=== PATIENT | female | born 1955 ===

== ENCOUNTER → 2017-07-07 | Outpatient (CLI) | payer MEDICARE, BC | LOC: OLS 08:29 | DX: E11.9 Type 2 diabetes mellitus without complications (principal) | CPT/HCPCS: 36415; 83036 ==

== ENCOUNTER → 2019-12-04 | Outpatient (CLI) | payer MEDICARE, BC | END | disposition home or self-care (01) | LOC: LAB SHORT 12:45 → LAB EV 12:45 | DX: M79.645 Pain in left finger(s) (principal) | CPT/HCPCS: 84550 ==

== ENCOUNTER → 2019-12-19 | Outpatient (CLI) | payer MEDICARE, BC ==
[2019-12-20 15:09] LABS: HPV 16 Negative (Negative); HPV 18 Negative (Negative); HPV OTHER HR TYPES Negative (Negative)
== END | disposition home or self-care (01) ==
PROVIDERS: Advanced Practice Midwife
DX: Z01.419 Encounter for gynecological examination (general) (routine) without abnormal findings (principal)

== ENCOUNTER → 2021-06-06 | Outpatient (CLI) | payer MEDICARE, BC ==
[2021-06-09 13:08] LABS: HPV 16 Negative (Negative); HPV 18 Negative (Negative); HPV OTHER HR TYPES Negative (Negative)
== END | disposition home or self-care (01) ==
LOC: LAB SHORT 10:21 → LAB 10:21
PROVIDERS: Advanced Practice Midwife
DX: Z01.419 Encounter for gynecological examination (general) (routine) without abnormal findings (principal)
CPT/HCPCS: 87624; G0123

== ENCOUNTER → 2023-03-14 | Outpatient (CLI) | payer MEDICARE, BC ==
[2023-03-15 12:59] LABS: Stool Occult Bld Immuno 1 Positive (NEGATIVE)
== END | disposition home or self-care (01) ==
LOC: LAB SHORT 22:20 → LAB 22:20
PROVIDERS: Family Medicine
DX: Z12.11 Encounter for screening for malignant neoplasm of colon (principal)
CPT/HCPCS: 82274

== ENCOUNTER 2023-09-12 19:03 | Inpatient (IN) | payer MEDICARE, BC ==
[~2023-09-12] VITALS: Ht 162.6 cm; Wt 88.4 kg
[2023-09-12 20:00] LABS: BASOPHILS ABSOLUTE AUTO 0.03 K/mm3 (0.00-0.23); BASOPHILS PERCENT AUTO 0 % (0-2); EOSINOPHILS ABSOLUTE AUTO 0.04 K/mm3 (0.00-0.68); EOSINOPHILS PERCENT AUTO 1 % (0-6); Hematocrit 35.7 % (33.0-51.0); Hemoglobin 11.9 g/dL (11.5-16.0); IMMATURE GRAN ABSOLUTE AUTO 0.03 K/mm3 (0.00-0.10); IMMATURE GRAN PERCENT AUTO 0 % (0-1); LYMPHOCYTES ABSOLUTE AUTO 1.77 K/mm3 (0.84-5.20); LYMPHOCYTES PERCENT AUTO 22 % (21-46); MONOCYTES ABSOLUTE AUTO 0.71 K/mm3 (0.16-1.47); MONOCYTES PERCENT AUTO 9 % (4-13); Mean Corpuscular HGB 27.4 pg (26.0-34.0); Mean Corpuscular HGB Conc 33.3 g/dL (31.5-36.5); Mean Corpuscular Volume 82 fL (80-100); Mean Platelet Volume 10.5 fL (9.1-12.4); NEUTROPHILS ABSOLUTE AUTO 5.66 K/mm3 (1.96-9.15); NEUTROPHILS PERCENT AUTO 69 % (41-73); Platelet Count 240 K/mm3 (150-400); RDW Coefficient Variation 17.8 % (11.7-14.2); RDW Standard Deviation 52.1 fL (35.1-46.3); Red Blood Cell Count 4.34 M/mm3 (3.80-5.20); White Blood Cell Count 8.24 K/mm3 (4.00-11.30)
[2023-09-12 20:16] LABS: International Normalized Ratio 0.94; Prothrombin Time Results 9.9 Sec (9.7-11.5)
[2023-09-12 20:21] LABS: Albumin, Blood 4.1 g/dL (3.4-5.0); Albumin/Globulin Ratio 1.2 (0.8-1.8); Bilirubin, Total 0.3 mg/dL (0.1-1.0); Bun/Creatinine Ratio 13.6 (12.0-20.0); Calcium, Blood 9.7 mg/dL (8.5-10.1); Creatinine, Blood 0.81 mg/dL (0.40-1.00); Globulin, Blood 3.5 g/dL (2.2-4.0); Potassium, Blood 3.8 mmol/L (3.5-5.5); Total Protein, Blood 7.6 g/dL (6.4-8.2)
[2023-09-12] MEDS ORDERED: NS 1,000 ML IV SCH (21:50)
[2023-09-12 22:00] LABS: Source, Urine Clean Catch
[2023-09-12 22:07] LABS: Appearance, Urine Clear (Clear); Bilirubin, Urine Neg (Neg); Blood, Urine 3+ (Neg); Color, Urine Yellow (P-Yellow); Glucose Qualitative, Urine Neg (Neg); Ketones, Urine Neg (Neg); Leukocyte Esterase, Urine Neg (Neg); Nitrite, Urine Neg (Neg); Protein, Urine 1+ (Neg); Specific Gravity, Urine 1.005 (1.003-1.022); Urobilinogen, Urine NORM (Normal)
[2023-09-12] MEDS ORDERED: Ondansetron HCl 2 MG / ML 2ML Vial IV PRN (22:10)
[2023-09-12] MEDS ORDERED: Acetaminophen 325 MG TABLET PO PRN (22:10)
[2023-09-12] MEDS ORDERED: FLU VACC QS2023-24(6MOS UP)/PF 60 MCG/0.5 ML SYRINGE IM ONE (22:10)
[2023-09-12 22:31] LABS: Bacteria Rare /hpf; Red Blood Cells, Urine 0-2 /hpf (0-2); Squamous Epithelial Cells Few /hpf (Few); White Blood Cells, Urine 0-2 /hpf (0-5)
[2023-09-12] MEDS ORDERED: Lactated Ringer's 1,000 ML IV SCH (23:00)
[2023-09-12 23:41] VITALS: BP 133/74
--- NOTE | 2023-09-13 00:21 | NUR ---
ADMIT NOTE 67 YR OLD FEMALE ADMITTED TO FLOOR FROM THE ED WITH DX OF LOWER GI BLEED. ED RN REPORTED PT HAD LOWER ABD PAIN AND HAD BM - NOTED APPARENT BLOOD CLOTS IN FECES AND CAME TO ED. A/O X 4. NOTE SLOW MOVEMENT FROM THE GURNEY TO GET INTO BED, VOICED HX GEORGE PLACEMENTS OF MOST OF BACK. PT ON CL LIQ (NO RED FLUIDS). ORIENTED TO USE OF CALL LIGHT. RAILS UP X 2 FOR SAFETY. SCD'S IN USE. WT 88.4 KG. WILL CONT TO MONITOR
[2023-09-13 00:33] LABS: Hematocrit 34.8 % (33.0-51.0); Hemoglobin 11.4 g/dL (11.5-16.0); Mean Corpuscular HGB 27.3 pg (26.0-34.0); Mean Corpuscular HGB Conc 32.8 g/dL (31.5-36.5); Mean Corpuscular Volume 83 fL (80-100); Mean Platelet Volume 10.4 fL (9.1-12.4); Platelet Count 212 K/mm3 (150-400); RDW Coefficient Variation 17.8 % (11.7-14.2); Red Blood Cell Count 4.18 M/mm3 (3.80-5.20); White Blood Cell Count 9.12 K/mm3 (4.00-11.30)
[2023-09-13] MEDS ORDERED: LOSA25 PO (00:43)
[2023-09-13 00:49] LABS: Bun/Creatinine Ratio 13.7 (12.0-20.0); Creatinine, Blood 0.8 mg/dL (0.40-1.00); Potassium, Blood 3.8 mmol/L (3.5-5.5)
[2023-09-13] MEDS ORDERED: FentaNYL Citrate 50 MCG/ML 2 ML Injection IV ONE (03:00)
[2023-09-13] MEDS ORDERED: FentaNYL Citrate 50 MCG/ML 2 ML Injection IV PRN (03:00)
[2023-09-13] MEDS ORDERED: Pantoprazole Sodium 40 MG Injection IV SCH (06:00)
--- NOTE | 2023-09-13 06:04 | NUR ---
USER SUPPORT SPECIALIST SUMMARY ADMITTED EARLIER IN THE SHIFT WITH DX OF LOWER GI BLEED. ALERT AND ORIENTED. VSS. NOTED SOME APPARENT S/S BLOOD IN FIRST STOOL, BUT NO NOTED S/S BLOOD IN SECOND STOOL. IVF OF LR INFUSING. HAS BEEN RESTING QUIETLY WITH OCCASIONAL AWAKENINGS - USUALLY TO GO TO BATHROOM. CALL LIGHT IN REACH. CL LIQ DIET. POSSIBLE COLONOSCOPY LATER TODAY.
[2023-09-13 07:38] VITALS: BP 125/63
[2023-09-13] MEDS ORDERED: Peg/Electrolytes 4,000 ML BTL PO ONE (08:55)
[2023-09-13] MEDS ORDERED: Losartan Potassium 25 MG Tab PO SCH (09:00)
[2023-09-13] MEDS ORDERED: AMLO10 PO (13:12)
[2023-09-13] MEDS ORDERED: ATOR20 PO (13:13)
[2023-09-13] MEDS ORDERED: CYCL10 PO (13:14)
[2023-09-13] MEDS ORDERED: OxyCODONE HCL 5 MG TAB PO PRN (13:15)
[2023-09-13] MEDS ORDERED: CYMBALTA60 M1 PO (13:15)
[2023-09-13] MEDS ORDERED: Cyclobenzaprine HCl 10 MG Tab PO PRN (13:15)
[2023-09-13] MEDS ORDERED: FURO20 PO (13:16)
[2023-09-13] MEDS ORDERED: LIDO700A20 TOP (13:17)
[2023-09-13] MEDS ORDERED: LOSARTAN POTAS100 M1 PO (13:18)
[2023-09-13] MEDS ORDERED: METO50ER PO (13:19)
[2023-09-13] MEDS ORDERED: Lidocaine 4% 1 Patch TOP PRN (13:20)
[2023-09-13] MEDS ORDERED: OXYMORPHONE HC7.5 MG PO (13:20)
[2023-09-13] MEDS ORDERED: PANT40 PO (13:21)
[2023-09-13] MEDS ORDERED: ALDACTONE25 MG PO (13:22)
[2023-09-13 14:31] LABS: BASOPHILS ABSOLUTE AUTO 0.02 K/mm3 (0.00-0.23); BASOPHILS PERCENT AUTO 0 % (0-2); EOSINOPHILS PERCENT AUTO 0 % (0-6); Hematocrit 34.1 % (33.0-51.0); Hemoglobin 11.3 g/dL (11.5-16.0); IMMATURE GRAN ABSOLUTE AUTO 0.02 K/mm3 (0.00-0.10); IMMATURE GRAN PERCENT AUTO 0 % (0-1); LYMPHOCYTES ABSOLUTE AUTO 1.27 K/mm3 (0.84-5.20); LYMPHOCYTES PERCENT AUTO 15 % (21-46); MONOCYTES PERCENT AUTO 7 % (4-13); Mean Corpuscular HGB 27.2 pg (26.0-34.0); Mean Corpuscular HGB Conc 33.1 g/dL (31.5-36.5); Mean Corpuscular Volume 82 fL (80-100); Mean Platelet Volume 9.8 fL (9.1-12.4); NEUTROPHILS ABSOLUTE AUTO 6.43 K/mm3 (1.96-9.15); NEUTROPHILS PERCENT AUTO 77 % (41-73); Platelet Count 205 K/mm3 (150-400); RDW Standard Deviation 52.8 fL (35.1-46.3); Red Blood Cell Count 4.15 M/mm3 (3.80-5.20); White Blood Cell Count 8.34 K/mm3 (4.00-11.30)
[2023-09-13 15:14] VITALS: BP 148/73
[2023-09-13] MEDS ORDERED: Nexium40 MG PO (17:02)
[2023-09-13] MEDS ORDERED: PERCOCET 10-321 EA13 PO (17:03)
[2023-09-13 19:43] VITALS: BP 139/70
--- NOTE | 2023-09-13 20:00 | NUR ---
SHIFT SUMMARY PATIENT TOLERATING GOLYTELY TODAY WITH CLEAR LIQUIDS. BOWEL MOVEMENTS THIS EVENING ARE WATERY, FREQUENT AND SOMETIMES BLOOD TINGED. PATIENT STILL GETTING UP TO BATHROOM INDEPENDENT. SHE CALL WHEN NEEDING TO BE WIPED DOWN ON BACK SIDE AND HAVE CALAZIME PLACED ON BUTTOCKS FOR EXCORIATION. MEDICATED FOR PAIN PER EMAR. SHE IS AOX4 PLEASANT AND COOPERATIVE WITH CARE. SHE IS ABLE TO MAKE NEEDS KNOWN.
[2023-09-13] MEDS ORDERED: DULoxetine HCL 60 MG Capsule DR PO SCH (21:00)
[2023-09-14] VITALS (32 sets, daily range): BP systolic 120–172; BP diastolic 63–89
--- NOTE | 2023-09-14 04:29 | NUR ---
SHIFT SUMMARY 67 YR F ADMITTED ON 09/12/23. FULL CODE. NO ACUTE CHANGES THIS SHIFT. PT FINISHED THE GO LYTELY AND C/O HER BACKSIDE BEING SORE FROM "GOING" SO MUCH. SHE IS PLEASANT AND COOPERATIVE WITH CARE BUT NEEDS ASSISTANCE CLEANING HER BACK SIDE DUE TO PRIOR SPINAL FUSION. PLAN IS FOR COLONOSCOPY AND ENDOSCOPY TODAY. SHE IS INDEPENDANT TO THE BATHROOM AND CALLS APPROPRIATELY FOR ASSISTANCE.
[2023-09-14 06:03] LABS: BASOPHILS ABSOLUTE AUTO 0.02 K/mm3 (0.00-0.23); BASOPHILS PERCENT AUTO 0 % (0-2); EOSINOPHILS ABSOLUTE AUTO 0.02 K/mm3 (0.00-0.68); EOSINOPHILS PERCENT AUTO 0 % (0-6); Hematocrit 31.7 % (33.0-51.0); Hemoglobin 10.6 g/dL (11.5-16.0); IMMATURE GRAN ABSOLUTE AUTO 0.02 K/mm3 (0.00-0.10); IMMATURE GRAN PERCENT AUTO 0 % (0-1); LYMPHOCYTES ABSOLUTE AUTO 1.62 K/mm3 (0.84-5.20); LYMPHOCYTES PERCENT AUTO 22 % (21-46); MONOCYTES ABSOLUTE AUTO 0.53 K/mm3 (0.16-1.47); MONOCYTES PERCENT AUTO 7 % (4-13); Mean Corpuscular HGB 27.1 pg (26.0-34.0); Mean Corpuscular HGB Conc 33.4 g/dL (31.5-36.5); Mean Corpuscular Volume 81 fL (80-100); Mean Platelet Volume 9.9 fL (9.1-12.4); NEUTROPHILS ABSOLUTE AUTO 5.18 K/mm3 (1.96-9.15); NEUTROPHILS PERCENT AUTO 70 % (41-73); Platelet Count 200 K/mm3 (150-400); RDW Coefficient Variation 18.1 % (11.7-14.2); RDW Standard Deviation 52.7 fL (35.1-46.3); Red Blood Cell Count 3.91 M/mm3 (3.80-5.20); White Blood Cell Count 7.39 K/mm3 (4.00-11.30)
[2023-09-14 06:25] LABS: Albumin, Blood 3.7 g/dL (3.4-5.0); Albumin/Globulin Ratio 1.2 (0.8-1.8); Bilirubin, Total 0.6 mg/dL (0.1-1.0); Bun/Creatinine Ratio 8.7 (12.0-20.0); Calcium, Blood 9.1 mg/dL (8.5-10.1); Creatinine, Blood 0.69 mg/dL (0.40-1.00); Globulin, Blood 3.1 g/dL (2.2-4.0); Total Protein, Blood 6.8 g/dL (6.4-8.2)
[2023-09-14] MEDS ORDERED: Potassium Chloride 20 MEQ TabCR PO ONE ×2 (08:00→13:15)
[2023-09-14] MEDS ORDERED: Atorvastatin 10 MG Tab PO SCH (09:00)
[2023-09-14] MEDS ORDERED: Metoprolol Succinate 50 MG TABCR PO SCH (09:00)
[2023-09-14] MEDS ORDERED: Spironolactone 25 MG Tab PO SCH (09:00)
[2023-09-14] MEDS ORDERED: Furosemide 20 MG Tab PO SCH (09:00)
[2023-09-14] MEDS ORDERED: AmLODIPine Besylate 5 MG Tab PO SCH (09:00)
[2023-09-14] MEDS ORDERED: Lactated Ringer's 1,000 ML IV SCH (09:45)
--- NOTE | 2023-09-14 10:27 | NUR ---
[facility] PT IS INPT FOR RECTAL BLEEDING. Pre-Op teaching done. Pt verbalizes understanding. Patient confirms NPO status and agrees with scheduled surgery. History, Chart, Medications and Allergies reviewed before start of procedure.
[2023-09-14] MEDS ORDERED: propofoL 40 ML IV ONE (10:46)
[2023-09-14] MEDS ORDERED: Benzocaine Oral Spray 0.5ML UD ONE (11:01)
--- NOTE | 2023-09-14 11:25 | NUR ---
09/14/23 1125 Jameel Messina HISTORY, CHART, MEDICATIONS AND ALLERGIES REVIEWED BEFORE START OF PROCEDURE. PATIENT CONFIRMS NPO STATUS AND AGREES WITH SCHEDULED PROCEDURE. 3-LEAD EKG REVIEWED WITH PHYSICIAN PRIOR TO START OF PROCEDURE. MONITOR INTACT WITH CONTINUOUS PULSE OXIMETRY,CAPNOGRAPHY, 3-LEAD EKG, INTERMITTENT BP. SUPPLEMENTAL O2 TO BE TITRATED THROUGHOUT PROCEDURE TO MAINTAIN O2 SATURATION ABOVE 90%. PATIENT DETERMINED TO BE ASA APPROPRIATE FOR PROPOFOL SEDATION PRIOR TO START OF PROCEDURE BY DR. SAMANIEGO.
[2023-09-14] MEDS ORDERED: LevoFLOXacin 500MG/D5W 100ML 100 ML IV SCH (12:30)
--- NOTE | 2023-09-14 12:38 | NUR ---
Patient gave verbal permission for nursing agency manager to help provide care.
--- NOTE | 2023-09-14 18:26 | NUR ---
SHIFT SUMMARY: PT A&O X4. PLEASANT AND COOPERATIVE WITH CARE. PT RECEIVED COLONOSCOPY AND EGD THIS AM W/O COMPLICATIONS. BX OBTAINED. PT WISHING TO GO HOME BUT DR. SAMANIEGO WOULD PREFER PT STAYED IN HOSPITAL FOR 1-2 DAYS FOR ABX. CONCERNS FOR ISCHEMIC COLITIS. POST OP VITALS STABLE. PT C/O PAIN ONE THIS SHIFT IN BACK AND ABD. VERY SMALL AMOUNTS OF BLOOD REMAIN IN STOOL. PT ON CLEAR LIQUID DIET AT THIS TIME TO ADVANCE TOLERATED. CALL LIGHT IN REACH. BED IN LOWEST POSITION. WILL REPORT TO ONCOMING RN.
[2023-09-15 02:51] VITALS: BP 117/57
[2023-09-15 05:40] LABS: BASOPHILS ABSOLUTE AUTO 0.02 K/mm3 (0.00-0.23); BASOPHILS PERCENT AUTO 0 % (0-2); EOSINOPHILS ABSOLUTE AUTO 0.03 K/mm3 (0.00-0.68); EOSINOPHILS PERCENT AUTO 0 % (0-6); Hematocrit 32.4 % (33.0-51.0); Hemoglobin 10.6 g/dL (11.5-16.0); IMMATURE GRAN ABSOLUTE AUTO 0.03 K/mm3 (0.00-0.10); IMMATURE GRAN PERCENT AUTO 0 % (0-1); LYMPHOCYTES ABSOLUTE AUTO 1.57 K/mm3 (0.84-5.20); LYMPHOCYTES PERCENT AUTO 21 % (21-46); MONOCYTES ABSOLUTE AUTO 0.69 K/mm3 (0.16-1.47); MONOCYTES PERCENT AUTO 9 % (4-13); Mean Corpuscular HGB 27.2 pg (26.0-34.0); Mean Corpuscular HGB Conc 32.7 g/dL (31.5-36.5); Mean Corpuscular Volume 83 fL (80-100); Mean Platelet Volume 9.8 fL (9.1-12.4); NEUTROPHILS ABSOLUTE AUTO 5.31 K/mm3 (1.96-9.15); NEUTROPHILS PERCENT AUTO 69 % (41-73); Platelet Count 195 K/mm3 (150-400); RDW Coefficient Variation 18.3 % (11.7-14.2); RDW Standard Deviation 54.7 fL (35.1-46.3); White Blood Cell Count 7.65 K/mm3 (4.00-11.30)
[2023-09-15 06:04] LABS: Albumin, Blood 3.5 g/dL (3.4-5.0); Albumin/Globulin Ratio 1.1 (0.8-1.8); Bilirubin, Total 0.6 mg/dL (0.1-1.0); Bun/Creatinine Ratio 11.4 (12.0-20.0); Creatinine, Blood 0.79 mg/dL (0.40-1.00); Globulin, Blood 3.1 g/dL (2.2-4.0); Potassium, Blood 3.6 mmol/L (3.5-5.5); Total Protein, Blood 6.6 g/dL (6.4-8.2)
--- NOTE | 2023-09-15 06:35 | NUR ---
Shift Summary Pt AOx4, uses BR independently but needs help wiping d/t back problems. She had multiple loose BMs tonight, the first one had a small amount of blood in it. She c/o back and hip pain, the hip pain is new and she states it's related to a surgery she had 1 year ago. Medicated per EMAR. Her IV was having difficulty flushing and she only recieved 1/2 of her IV protonix dose before it became painful and I removed the IV. On tele, SR 80's, no events.
[2023-09-15 07:16] VITALS: BP 135/59
[2023-09-15] MEDS ORDERED: LEVO750 PO (11:40)
[2023-09-15] MEDS ORDERED: Diflucan150 MG PO (11:41)
--- NOTE | 2023-09-15 12:30 | NUR ---
PATIENT DISCHARGED TO HOME ACCOMPANIED BY HER SPOUSE. TELEMETRY REMOVED, IV PREVIOUSLY REMOVED. VERBALIZED UNDERSTANDING OF D/C INSTRUCTIONS; CLARIFIED WITH DR. CRISTINA THAT RX FOR LEVOFLOXACIN IS ONLY TO BE 4 TABS NOT 5. OFF UNIT VIA W/C AT 1215. NO PERSONAL BELONGINGS LEFT BEHIND IN ROOM.
== END 2023-09-15 12:51 | disposition home or self-care (01) | DRG 386 ==
LOC: ER 19:03 → MEDS 19:04 → ENPENDDIS 09-15 10:48 → MEDS 09-15 12:51
PROVIDERS: Emergency Medicine; Family Medicine; Internal Medicine Gastroenterology; Physician Assistant; ADMIT Internal Medicine
PROC: 0DB58ZX Excision of Esophagus, Via Natural or Artificial Opening Endoscopic, Diagnostic (ICD-10-PCS; 2023-09-14)
PROC: 0DBK8ZZ Excision of Ascending Colon, Via Natural or Artificial Opening Endoscopic (ICD-10-PCS; 2023-09-14)
PROC: 0DBL8ZZ Excision of Transverse Colon, Via Natural or Artificial Opening Endoscopic (ICD-10-PCS; 2023-09-14)
PROC: 0DBM8ZZ Excision of Descending Colon, Via Natural or Artificial Opening Endoscopic (ICD-10-PCS; 2023-09-14)
PROC: 0DBH8ZZ Excision of Cecum, Via Natural or Artificial Opening Endoscopic (ICD-10-PCS; 2023-09-14)
PROC: 0DB98ZX Excision of Duodenum, Via Natural or Artificial Opening Endoscopic, Diagnostic (ICD-10-PCS; principal; 2023-09-14 10:00)
PROC: 0DB68ZX Excision of Stomach, Via Natural or Artificial Opening Endoscopic, Diagnostic (ICD-10-PCS; 2023-09-14 10:00)
DX: K51.90 Ulcerative colitis, unspecified, without complications (principal); K55.9 Vascular disorder of intestine, unspecified; K92.1 Melena; I10 Essential (primary) hypertension; R73.9 Hyperglycemia, unspecified; G89.29 Other chronic pain; M54.9 Dorsalgia, unspecified; R19.7 Diarrhea, unspecified; K59.03 Drug induced constipation; T40.2X5A Adverse effect of other opioids, initial encounter; K21.9 Gastro-esophageal reflux disease without esophagitis; M79.7 Fibromyalgia; M19.011 Primary osteoarthritis, right shoulder; K31.7 Polyp of stomach and duodenum; K63.5 Polyp of colon; M41.9 Scoliosis, unspecified; D50.9 Iron deficiency anemia, unspecified; F32.A Depression, unspecified; Z90.49 Acquired absence of other specified parts of digestive tract; E78.00 Pure hypercholesterolemia, unspecified; Z87.891 Personal history of nicotine dependence
CPT/HCPCS: 36415; 74177; 80048; 80053; 81001; 83735; 85025; 85027; 85610; 85730; 86850; 86900; 86901; 88305; 88342; 96360-59; 96361; 96365; 96375; 96376; 99285-25; A9270; C9113; G0378; J1956; J2704; J3010; J7030; J7120; Q9967

== ENCOUNTER 2024-11-06 10:30 | Emergency (ER) | payer MEDICARE, OTHER ==
[~2024-11-06] VITALS: Ht 162.6 cm; Wt 90.7 kg
[~2024-11-06 10:30] MED LIST: ALDACTONE25 MG PO; AMLO10 PO; ATOR20 PO; CYCL10 PO; CYMBALTA60 M1 PO; Diflucan150 MG PO; FURO20 PO; LEVO750 PO; LIDO700A20 TOP; LOSA25 PO; LOSARTAN POTAS100 M1 PO; METO50ER PO; Nexium40 MG PO; OXYMORPHONE HC7.5 MG PO; PANT40 PO; PERCOCET 10-321 EA13 PO
[2024-11-06 11:27] VITALS: BP 133/93
[2024-11-06 11:56] LABS: BASOPHILS ABSOLUTE AUTO 0.03 K/mm3 (0.00-0.23); BASOPHILS PERCENT AUTO 0 % (0-2); EOSINOPHILS ABSOLUTE AUTO 0.04 K/mm3 (0.00-0.68); EOSINOPHILS PERCENT AUTO 0 % (0-6); Hematocrit 43.2 % (33.0-51.0); Hemoglobin 15.3 g/dL (11.5-16.0); IMMATURE GRAN ABSOLUTE AUTO 0.02 K/mm3 (0.00-0.10); IMMATURE GRAN PERCENT AUTO 0 % (0-1); LYMPHOCYTES ABSOLUTE AUTO 2.74 K/mm3 (0.84-5.20); LYMPHOCYTES PERCENT AUTO 27 % (21-46); MONOCYTES ABSOLUTE AUTO 0.81 K/mm3 (0.16-1.47); MONOCYTES PERCENT AUTO 8 % (4-13); Mean Corpuscular HGB 31.5 pg (26.0-34.0); Mean Corpuscular HGB Conc 35.4 g/dL (31.5-36.5); Mean Corpuscular Volume 89 fL (80-100); Mean Platelet Volume 9.7 fL (9.1-12.4); NEUTROPHILS ABSOLUTE AUTO 6.65 K/mm3 (1.96-9.15); NEUTROPHILS PERCENT AUTO 65 % (41-73); Platelet Count 242 K/mm3 (150-400); RDW Coefficient Variation 12.9 % (11.7-14.2); RDW Standard Deviation 42.1 fL (35.1-46.3); Red Blood Cell Count 4.85 M/mm3 (3.80-5.20); White Blood Cell Count 10.29 K/mm3 (4.00-11.30)
[2024-11-06 12:16] LABS: Albumin, Blood 4.2 g/dL (3.4-5.0); Albumin/Globulin Ratio 1.1 (0.8-1.8); Bilirubin, Total 0.6 mg/dL (0.1-1.0); Bun/Creatinine Ratio 25.5 (12.0-20.0); C-REACTIVE PROTEIN, EXT RANGE 0.696 mg/dL (0.000-0.300); Calcium, Blood 9.4 mg/dL (8.5-10.1); Creatinine, Blood 0.78 mg/dL (0.40-1.00); Globulin, Blood 3.8 g/dL (2.2-4.0)
== END 2024-11-06 15:22 | disposition home or self-care (01) ==
LOC: ER 10:30
PROVIDERS: Physician Assistant
DX: M25.562 Pain in left knee (principal); M25.561 Pain in right knee; Z59.89 Other problems related to housing and economic circumstances; I10 Essential (primary) hypertension; E78.5 Hyperlipidemia, unspecified; Z79.891 Long term (current) use of opiate analgesic; Z79.2 Long term (current) use of antibiotics; Z16.32 Resistance to antifungal drug(s); Z79.899 Other long term (current) drug therapy; Z79.83 Long term (current) use of bisphosphonates
CPT/HCPCS: 80053; 85025; 85651; 86140; 99283

== ENCOUNTER → 2024-11-16 | Outpatient (CLI) | payer MEDICARE ==
[~2024-11-16] MED LIST changes: -CYMBALTA60 M1 PO; +DICLOFENAC SOD100 GM TOP; +DULO30 PO; -LOSA25 PO; +LOSA50 PO; -OXYMORPHONE HC7.5 MG PO; +OXYMORPHONE HCL5 M1 PO
[2024-11-16 15:23] LABS: Body Fluid Crystals NEG (NEGATIVE)
[2024-11-16 15:35] LABS: WBC Count, Synovial Fluid 668 /mm3 (0-180)
[2024-11-16 15:46] LABS: Appearance, Synovial Fluid Hazy (Clear); Color, Synovial Fluid Yellow (None-P Yel); RBC Count, Synovial Fluid 651 /mm3 (0-0)
[2024-11-16 16:17] LABS: Lymphs, Synovial Fluid 4 % (0-15); Monocytes/Macrophages, Synovia 81 % (0-65); Neutrophils, Synovial Fluid 15 % (0-24)
== END ==
LOC: LAB SHORT 15:04 → LAB 15:04
PROVIDERS: Orthopaedic Surgery
DX: M17.12 Unilateral primary osteoarthritis, left knee (principal)
CPT/HCPCS: 87070; 87075; 87205; 89051; 89060

== ENCOUNTER 2024-12-04 07:22 | Day surgery (SDC) | payer MEDICARE, OTHER ==
[2024-12-04] VITALS (20 sets, daily range): BP systolic 115–146; BP diastolic 52–77
[~2024-12-04] VITALS: Ht 162.6 cm; Wt 90.0 kg
[~2024-12-04 07:22] MED LIST changes: +Acetaminophen 500 MG Tab PO SCH; +BENADRYL25 MG PO; +CYCLOBENZAPRINE5 MG PO; +CeFAZolin Sodium 2,000 MG VIAL ONE; +CeFAZolin Sodium 2,000 MG in NS 100 ML IV SCH; +Chlorhexidine Mouth Care 15 ML UDC MT SCH; +Lactated Ringer's 1,000 ML IV SCH; +OxyCODONE HCL 10 MG TABCR PO SCH; +Ropivacaine 0.5% HCl/Pf 123.125 MG,EPINEPHrine HCL 0.25 MG,Ketorolac Tromethamine 15 MG... INFIL SCH; +Tranexamic Acid 100 ML IV SCH
[2024-12-04] MEDS ORDERED: Ondansetron HCl 2 MG / ML 2ML Vial IV PRN (08:00)
[2024-12-04] MEDS ORDERED: Metoclopramide HCl 5MG / ML 2ML Vial IV PRN (08:00)
[2024-12-04] MEDS ORDERED: OxyCODONE HCL 5 MG TAB PO PRN ×2 (08:05)
[2024-12-04] MEDS ORDERED: Magnesium Hydroxide Conc 10 ML UDC PO PRN (08:05)
[2024-12-04] MEDS ORDERED: Bisacodyl 10 MG Supp PR PRN (08:10)
[2024-12-04] MEDS ORDERED: Promethazine HCl 25 MG Tab PO PRN (08:10)
[2024-12-04] MEDS ORDERED: HYDROmorphone HCl/Pf 1MG SYR IV PRN ×2 (08:10→08:30)
[2024-12-04] MEDS ORDERED: DiphenhydrAMINE HCL 25 MG Cap PO PRN (08:10)
[2024-12-04] MEDS ORDERED: propofoL 100 ML IV ONE (08:12)
[2024-12-04] MEDS ORDERED: Famotidine 10 MG/ML 2ML Vial IV ONE (08:15)
[2024-12-04] MEDS ORDERED: Lactated Ringer's 1,000 ML IV SCH (08:20)
[2024-12-04] MEDS ORDERED: Albuterol 2.5 MG/3 ML VIAL INH PRN (08:25)
[2024-12-04] MEDS ORDERED: Prochlorperazine Edisylate 10 mg Vial IV PRN (08:25)
[2024-12-04] MEDS ORDERED: FentaNYL Citrate 50 MCG/ML 2 ML Injection IV PRN (08:25)
[2024-12-04] MEDS ORDERED: propofoL 20 ML IV ONE (08:30)
[2024-12-04] MEDS ORDERED: Rocuronium Bromide 10 MG/ML 5ML Injection IV ONE (08:30)
[2024-12-04] MEDS ORDERED: FentaNYL Citrate 50 MCG/ML 2 ML Injection ONE ×2 (08:30→10:59)
[2024-12-04] MEDS ORDERED: Magnesium Sulf 2 GM/Water 50ML 50 ML IV ONE (08:30)
[2024-12-04] MEDS ORDERED: Dexamethasone Sod Phos 10 MG/ML 1ML VIAL ONE (08:32)
[2024-12-04] MEDS ORDERED: Ketorolac Tromethamine 30mg Vial ONE (08:32)
[2024-12-04] MEDS ORDERED: Ondansetron HCl 2 MG / ML 2ML Vial ONE (08:32)
--- NOTE | 2024-12-04 08:39 | NUR ---
History, Chart, Medications and Allergies reviewed before start of procedure. Lungs clear T/O to Auscultation. Patient confirms NPO status and agrees with scheduled surgery. Pre-Op teaching done. Pt verbalizes understanding. Patient reports completing Chlorhexadine shower X2 prior to admission to hospital.
[2024-12-04] MEDS ORDERED: Phenylephrine HCl 100 MCG/ML-NS 10MLSYR (1MG/10ML) ONE (08:55)
[2024-12-04] MEDS ORDERED: Docusate Sodium 100 MG Cap PO SCH (09:00)
[2024-12-04] MEDS ORDERED: HYDROmorphone HCl/Pf 1MG SYR ONE ×2 (09:26→11:08)
[2024-12-04] MEDS ORDERED: Sugammadex Sodium 200 MG/2ML SDV (100 MG/ML) ONE (09:52)
--- NOTE | 2024-12-04 11:43 | NUR ---
pt arrived to unit from pacu. spouse bedside. call light in reach. aquacel dressing to lle x2 cdi. polar pack and scd's in place. pt drowsy but answering questions. rates pain 9/10. vss. encouraged po intake to be able to get po meds on board.
[2024-12-04] MEDS ORDERED: Ketorolac Tromethamine 15mg Vial IV SCH (12:00)
--- NOTE | 2024-12-04 13:48 | NUR ---
RESTING IN BED, DENIES ANY NEEDS AT THIS TIME. CALL LIGHT IN REACH.
--- NOTE | 2024-12-04 14:18 | NUR ---
ROHAN/PT IN TO SEE PTDarnell
[2024-12-04] MEDS ORDERED: ACET500 PO (15:20)
[2024-12-04] MEDS ORDERED: ASPI81CH PO (15:21)
[2024-12-04] MEDS ORDERED: Acetaminophen 500 MG Tab PO SCH (16:00)
--- NOTE | 2024-12-04 16:09 | NUR ---
DISCHARGED PT VOIDED, CLEARED THERAPY, TOLERATED PO AND PAIN MANAGED ON PO PAIN MEDS. REVIEWED DC INSTRUCTIONS W/PT AND SPOUSE. PT SIGNED DC PAPERWORK. PROVIDED AQUACEL DRESSINGS. PT LEFT UNIT IN WC W/POSSESSIONS AND DC PAPERWORK IN HAND, ACCOMPANIED BY SPOUSE.
[2024-12-04] MEDS ORDERED: CeFAZolin Sodium 2,000 MG in NS 100 ML IV SCH (16:45)
[2024-12-04] MEDS ORDERED: Losartan Potassium 50 MG Tab PO SCH (21:00)
[2024-12-05] MEDS ORDERED: Pantoprazole Sodium 40 MG Tab PO SCH (06:00)
[2024-12-05] MEDS ORDERED: DULoxetine HCL 60 MG Capsule DR PO SCH (09:00)
[2024-12-05] MEDS ORDERED: Metoprolol Succinate 50 MG TABCR PO SCH (09:00)
[2024-12-05] MEDS ORDERED: OXYMORPHONE 5 MG PO SCH (09:00)
[2024-12-05] MEDS ORDERED: Aspirin 81 MG Chew PO SCH (09:00)
[2024-12-05] MEDS ORDERED: Furosemide 20 MG Tab PO SCH (09:00)
[2024-12-05] MEDS ORDERED: Spironolactone 25 MG Tab PO SCH (09:00)
[2024-12-05] MEDS ORDERED: AmLODIPine Besylate 5 MG Tab PO SCH (09:00)
== END 2024-12-04 16:10 | disposition home or self-care (01) ==
LOC: ORSCMMR 07:22 → ORD 10:30 → SURS 11:34 → ORSCMMR 16:10
PROVIDERS: Orthopaedic Surgery
PROC: 0SRD0JA Replacement of Left Knee Joint with Synthetic Substitute, Uncemented, Open Approach (ICD-10-PCS; principal; 2024-12-04 08:30)
DX: M17.12 Unilateral primary osteoarthritis, left knee (principal); I10 Essential (primary) hypertension; I25.10 Atherosclerotic heart disease of native coronary artery without angina pectoris; Z87.891 Personal history of nicotine dependence; K21.9 Gastro-esophageal reflux disease without esophagitis; Z96.651 Presence of right artificial knee joint; Z79.899 Other long term (current) drug therapy
CPT/HCPCS: 27447; 0055T; 73560-LT; 97110; 97116; 97162; A9270; C1713; C1776; J0171; J0690; J0735; J1100; J1171; J1885; J2371; J2405; J2704; J2795; J3010; J3475; J7120